=== PATIENT | female | born 1960 | race Caucasian/White ===

== ENCOUNTER 2020-05-13 11:33 | Emergency (ER) | payer OTHER, SELFPAY ==
--- NOTE | ~2020-05-13 | XR_ITS ---
XR chest 1V portable DATE: 05/13/2020 12:29 INDICATION: Cough, fever. History of asthma. TECHNIQUE: Portable AP chest on 05/13/2020 at 1213 hours COMPARISON: 08/02/2015 2 view chest FINDINGS: Heart size appears within normal limits. There is no hilar or mediastinal enlargement. Ther e is mild aortic unfolding. Mild focal infiltrate or atelectasis is suggested in the left mid lung; otherwise no pulmonary infilt rate or consolidation, pleural effusion or pulmonary vascular congestion or pneumothorax is detected. There is diffuse idiopathic skeletal hyperostosis of the thoracic spine. Diffuse osteopenia. IMPRESSION: Mild infiltrate or atelectasis is suggested in the left mid lung; otherwise no active car diopulmonary disease Reviewed, dictated and finalized at location A. NNED EQUIPMENT OPERATOR IMPRESSION: Mild infiltrate or atelectasis is suggested in the left mid lung; o therwise no active cardiopulmonary disease
[2020-05-13 12:00] VITALS: BP 137/93; PULSE 103; RESP 17; TEMP 37.1; O2SAT 96
--- NOTE | 2020-05-13 14:08 | ED.FEVER ---
HPI - Fever General Chief Complaint: Fever Stated Complaint: I think I have COVID, I am very claustophobic Time Seen by Provider: 05/13/20 12:27 Source: patient Mode of arrival: ambulatory Limitations: no limitations History of Present Illness HPI Narrative: 59 years old white female presents with fever up to 101, body aches, and sore throat started 5 days ago. Patient lives alone, use mask at work, went to visit her son 5 to 6 days ago who had similar symptoms. Patient was started on Zithromax by her family physician for possible strep, no improvement Patient denies any chest pain or shortness of breath. Patient feels anxious and distressed, been taking Xanax and would like to have a refill. Related Data Allergies Allergy/AdvReac Type Severity Reaction Status Date / Time No Known Allergies Allergy Verified 05/13/20 12:27 Review of Systems Review of Systems: Narrative: CONSTITUTIONAL: Fever, body aches EYES: Denies visual changes, redness, or discharge. ENT: Sore throat. CARDIOVASCULAR: Denies chest pain, palpitations, or edema. RESPIRATORY: Denies cough or dyspnea. GASTROINTESTINAL: Denies abdominal pain, nausea, vomiting, or diarrhea. GENITOURINARY: Denies dysuria or hematuria. SKIN: Denies rash or itching. MUSCULOSKELETAL: Denies back pain, joint pain, or myalgia. NEUROLOGIC: Weakness PSYCHIATRIC: Anxiety PMFSH Past Medical History Medical History (Updated 05/13/20 @ 14:47 by Abhi Moreno MD) Obesity Social History Social History Gender identity (if verbalized by the patient): Female Exam Narrative: Exam Narrative: General appearance: Well-developed, well-nourished, morbidly obese Skin: Normal color Head: Normocephalic, nontraumatic Eyes: Clear conjunctiva ENT: Oropharynx slightly erythematous Neck: Supple, nontender Chest and respiratory: Airway patent, no respiratory distress, no accessory muscle use Heart: Regular rate/rhythm Abdomen: Soft, nontender, no organomegaly, quiet bowel sounds Musculoskeletal: Normal range of motion, nontender back Neurologic: Alert and oriented ?3, patient is anxious Course Course Emergency Course: Stable Vital Signs Vital signs: Vital Signs Temperature 37.1 C 05/13/20 12:00 Pulse Rate 103 H 05/13/20 12:00 Respiratory Rate 17 05/13/20 12:00 Blood Pressure 137/93 H 05/13/20 12:00 Pulse Oximetry 96 05/13/20 12:00 Temperature 37.1 C 05/13/20 12:00 Pulse Rate 103 H 05/13/20 12:00 Respiratory Rate 17 05/13/20 12:00 Blood Pressure 137/93 H 05/13/20 12:00 Pulse Oximetry 96 05/13/20 12:00 MDM - Fever MDM Narrative Medical decision making narrative: Covid infection is my concern. Rapid strep, influenza swab, COVID-19 swab ordered Chest x-ray ordered. Lab Data Labs: Lab Results 05/13/20 Range/Units 12:17 SARS-CoV-2 RNA (RT-PCR) Pending Influenza A Screen Negative Reference Range: Negative Influenza B Screen Negative Reference Range: Negative Strep Screen Presumptive Negative *(Reference Range: Negative)* Critical Care Time Critical Care Time Critical Care Time: No Discharge Plan Discharge Clinical Impression: Viral infection Patient Disposition: Home, Self-Care Condition: Stable Instructions: Viral Syndrome (ED) Additional Instructions: Return if symptoms are worsening , call your family physician for appointment, take Tylenol as as needed for aches and pain, continue home medications. Remain isolated at home until you get the COVID-19 test r
[2020-05-13 14:47] VITALS: BP 137/80; PULSE 80; RESP 16; O2SAT 99
[2020-05-13] MEDS: ACETAMINOPHEN 325 MG TABLET 650 MG PO (14:48)
[2020-05-13] MEDS: IBUPROFEN 600 MG TABLET PO (14:49)
[2020-05-14 11:58] LABS: SARS-CoV-2 RNA PCR Positive
== END 2020-05-13 14:50 | disposition home or self-care (01) ==
PROVIDERS: Emergency Medicine; Emergency Provider Emergency Medicine; PCP Family Medicine
DX: U07.1 COVID-19 (principal); E66.9 Obesity, unspecified; Z68.41 Body mass index [BMI] 40.0-44.9, adult
CPT/HCPCS: 71045; 87081; 87635; 87804; 87880; 99283; A9270; C9803; U0003

== ENCOUNTER 2020-05-20 13:08 | Inpatient (IN) | payer OTHER, SELFPAY ==
[2020-05-20] VITALS (20 sets, daily range): BP systolic 102–138; BP diastolic 61–79; PULSE 59–104; RESP 14–43; TEMP 36.3–38.3; O2SAT 90–97; BMI 48.3
--- NOTE | ~2020-05-20 | CT_ITS ---
EXAMINATION: CTA chest PE protocol DATE: 05/20/2020 15:24 INDICATION: Shortness of breath. COVID positive. TECHNIQUE: Computed tomography (CT) pulmonary angiogram of the chest was performed with 100 mL Omnipa que-350 intravenous contrast. Additional 3D reconstructions utilizing coronal maximum intensity proje ction (MIP) were performed. Automated exposure control and iterative reconstruction technique were em ployed. The dose-length product was 936.41 mGy-cm. COMPARISON: None FINDINGS: Good contrast opacification of the pulmonary arteries. There is mild streak artifact from dense contr ast in the superior vena cava and right atrium. Mild scattered respiratory motion artifact and increa sed quantum mottle due to patient body habitus. Together this mildly decreases sensitivity in the sma ller subsegmental pulmonary arteries. No pulmonary embolism. There are extensive bilateral small patc hy groundglass opacities throughout both lungs suspicious for COVID pneumonia. No septal line thicken ing to suggest pulmonary edema. No pleural effusion or pneumothorax. Mild cardiomegaly. No pericardia l effusion. Thoracic aorta is normal in caliber with no dissection. Small sliding-type hiatal hernia and postoperative change of prior gastric bypass procedure. Mild likely reactive mediastinal lymphade nopathy. Moderate thoracic spondylosis. There are bridging osteophytes at multiple levels in the spin e, consistent with diffuse idiopathic skeletal hyperostosis (DISH). IMPRESSION: 1. No pulmonary embolism. Sensitivity mildly decreased in some of the smaller subsegmental pulmonary arteries due to combination of factors as detailed above. 2. Extensive patchy bilateral airspace disease most suspicious for COVID 19 pneumonia. Differential i ncludes less likely pulmonary edema, hypersensitivity pneumonitis or eosinophilic pneumonia. 3. Mild cardiomegaly. 4. Mild likely reactive mediastinal lymphadenopathy. 5. Small sliding-type hiatal hernia with change of prior gastric bypass. Reviewed, dictated and finalized at location A. ER GLAZIER IMPRESSION: 1. No pulmonary embolism. Sensitivity mildly decreased in some of the smaller s ubsegmental pulmonary arteries due to combination of factors as detailed above. 2. Extensive patchy bilateral airspace disease most suspicious for COVID 19 pne umonia. Differential includes less likely pulmonary edema, hypersensitivity pne umonitis or eosinophilic pneumonia. 3. Mild cardiomegaly. 4. Mild likely reactive mediastinal lymphadenopathy. 5. Small sliding-type hiatal hernia with change of prior gastric bypass.
--- NOTE | ~2020-05-20 | XR_ITS ---
XR chest 1V portable 05/20/2020 13:50 Indication: Shortness of breath Procedure: AP portable chest Comparison: 05/13/2020 Findings: Heart size normal. Bilateral perihilar interstitial infiltrates. No pleural effusion or pne umothorax. No acute osseous abnormality. Impression: 1: Bilateral perihilar interstitial infiltrates may represent edema or pneumonia. Reviewed, dictated and finalized at location A. TENANT GENERAL Impression: 1: Bilateral perihilar interstitial infiltrates may represent edema or pneumoni a.
--- NOTE | 2020-05-20 13:20 | ECG_ITS ---
Measurements Intervals [place] Rate: 106 P: 42 CA: 172 QRS: 1 QRSD: 90 T: -15 QT: 326 QTc: 434 Interpretive Statements SINUS TACHYCARDIA VOLTAGE CRITERIA FOR LVH NONSPECIFIC ST & T-WAVE ABNORMALITY- ANTEROLAT/INF LEADS BASELINE WANDER- I, II, III, AVR, AVL, AVF, V1-V4 ABNORMAL ECG Electronically Signed On 05-20-2020 14:36:32 RESEARCH QUALITY ASSURANCE ANALYST by Malcolm Law D.O.
[2020-05-20 13:33] LABS: Alveolar/Arterial O2 Gradient 45.1 mmHg; Base Excess ABG 3.9 mEq/l (+/-2.0); Device ROOM AIR; Fractional Inspired Oxygen 21 %; HCO3 ABG 28.2 mEq/l (22.0-26.0); Modified Allen's Test Pass; Oxygen Content ABG 15.6 %vol (16.0-22.0); Oxyhemoglobin 87.5 % THb (90.0-100.0); PCO2 ABG 41.4 mmHg (35.0-45.0); PO2 ABG 55.1 mmHg (80.0-100.0); PO2 FiO2 Ratio Arterial Blood 2.62 %; Site Drawn RIGHT RADIAL; Total Hemoglobin 12.7 g/dL (12.0-18.0); pH ABG 7.451 (7.350-7.450)
--- NOTE | 2020-05-20 13:44 | PC.NURSE ---
called lab, added on D anaxf [phone]
[2020-05-20] MEDS: FAMOTIDINE 20 MG/2 ML VIAL IV PUSH ×2 (13:57→20:52)
[2020-05-20] MEDS: SODIUM CHLORIDE 0.9% IV 500 ML 999 ML IV CONT (13:57)
[2020-05-20 14:02] LABS: Basophils Percent Auto 0.3 % (0.2-1.2); Eosinophils Percent Auto 0.3 % (0-4.4); Hematocrit 38.7 % (37.0-47.0); Hemoglobin 12.1 g/dL (12.0-15.0); Immature Granulocyte Absolute 0.03 K/mm3 (0.00-0.031); Immature Granulocyte Percent A 0.5 % (0-0.5); Lymphocytes Absolute Auto 0.97 K/mm3 (0.9-3.2); Mean Corpuscular HGB Conc 31.3 g/dl (32-36); Mean Corpuscular Hemoglobin 26.2 pg (26-34); Mean Corpuscular Volume 83.9 fl (80-100); Mean Platelet Volume 10.4 fl (7.4-10.4); Monocytes Absolute Auto 0.4 K/mm3 (0.1-0.6); Monocytes Percent Auto 7.3 % (2.6-8.5); Neutrophils Absolute Auto 4.6 K/mm3 (1.3-6.7); Neutrophils Percent Auto 75.6 % (45.5-73.1); Platelet Count Result 272 k/mm3 (150-375); Red Blood Count 4.61 M/mm3 (4.2-5.4); White Blood Count 6.1 K/mm3 (4.5-10.0)
[2020-05-20 14:14] LABS: INR 1.1; Prothrombin Time 14.3 Seconds (11.1-14.7)
[2020-05-20 14:15] LABS: Partial Thromboplastin Time 28.8 SECONDS (22.3-36.8)
[2020-05-20 14:16] LABS: Alanine Aminotransferase 19 U/L (4-35); Albumin Level 3.6 g/dL (3.5-5.1); Alkaline Phosphatase 66 U/L (38-126); Anion Gap 7 mmol/L (8-16); Aspartate Amino Transferase 32 U/L (14-36); Bilirubin,Total 0.4 mg/dL (0.2-1.3); Blood Urea Nitrogen 11 mg/dL (7-17); Calcium 8.9 mg/dL (8.4-10.2); Carbon Dioxide 31 mmol/L (22-30); Chloride 99 mmol/L (98-107); Estimated CRCL calculation 131 ml/min; Estimated Glomerular Filt Rate > 60; Glucose 134 mg/dL (65-105); Magnesium 2.2 mg/dL (1.6-2.3); Potassium 3.7 mmol/L (3.4-5.0); Sodium 137 mmol/L (137-145)
[2020-05-20 14:17] LABS: D Dimer 1.29 ug/mL (<0.48)
[2020-05-20 14:26] LABS: NT Pro B Type Natriuretic Pept 55 PG/ML (5-100)
--- NOTE | 2020-05-20 14:40 | ED.GENADULT ---
HPI - General Adult General Chief complaint: Shortness of Breath/Dyspnea <Sanjay Plasencia PA-C - Last Filed: 05/20/20 16:35> Stated complaint: covid <Sanjay Plasencia PA-C - Last Filed: 05/20/20 16:35> Time Seen by Provider: 05/20/20 13:20 <Sanjay Plasencia PA-C - Last Filed: 05/20/20 16:35> Source: patient and old records reviewed <Sanjay Plasencia PA-C - Last Filed: 05/20/20 16:35> Mode of arrival: ambulatory <Sanjay Plasencia PA-C - Last Filed: 05/20/20 16:35> Limitations: no limitations <Sanjay Plasencia PA-C - Last Filed: 05/20/20 16:35> History of Present Illness HPI narrative: Patient is a 59-year-old female who presents with shortness of breath and fatigue patient has had symptoms of Covid for 12 days has been taking Tylenol and ibuprofen with a few vitamins for her symptoms patient denies vomiting or diarrhea patient notes that she has shortness of breath worse with activity does okay with no activity patient notes some heaviness of the chest that is minimal in nature patient on arrival does not appear distressed or uncomfortable <Sanjay Plasencia PA-C - Last Filed: 05/20/20 16:35> Related Data Home medications: Home Medications Medication Instructions Recorded Confirmed desvenlafaxine succinate 100 mg PO DAILY 05/21/20 05/21/20 losartan 50 mg PO DAILY 05/21/20 05/21/20 <Sanjay Plasencia PA-C - Last Filed: 05/20/20 16:35> Allergies/adverse reactions: Allergies Allergy/AdvReac Type Severity Reaction Status Date / Time No Known Allergies Allergy Verified 05/20/20 18:10 <Sanjay Plasencia PA-C - Last Filed: 05/20/20 16:35> Review of Systems Review of Systems: All systems reviewed & are unremarkable except as noted in HPI and below <Sanjay Plasencia PA-C - Last Filed: 05/20/20 16:35> PMFSH Past Medical History Medical History: Medical History (Updated 05/20/20 @ 16:35 by Sanjay Plasencia PA-C) Anxiety Obesity <Sanjay Plasencia PA-C - Last Filed: 05/20/20 16:35> Family History Family History: Family History Grandparent Dementia Father Alcohol abuse Mother Parkinson's disease, Lewy body <Sanjay Plasencia PA-C - Last Filed: 05/20/20 16:35> Social History Social History: Social History (Updated 05/20/20 @ 14:43 by Sanjay Plasencia PA-C) Smoking status: Never smoker Alcohol intake: never Substance use: never Gender identity (if verbalized by the patient): Female Spiritual care concerns: No <Sanjay Plasencia PA-C - Last Filed: 05/20/20 16:35> Exam Narrative: Exam Narrative: GENERAL: Well-appearing, obese, and in no acute distress. HEAD: Normocephalic, atraumatic. EYES: PERRLA and EOMI. ENT: Nares clear, no rhinorrhea or epistaxis. Mucous membranes moist. NECK: Supple. No adenopathy or masses. CHEST: Clear to auscultation. No respiratory distress. No wheezes. Crackles in the lung bases HEART: Regular rate and rhythm. No murmur heard. EXTREMITIES: Normal range of motion. No edema. SKIN: Warm, dry, no rash. NEURO: No focal deficits. Alert and oriented x3. Cranial nerves II through XII grossly intact PSYCH: Normal mood and affect. <Sanjay Plasencia PA-C - Last Filed: 05/20/20 16:35> Course Course Emergency Course: Patient evaluated in the emergency department found to have extensive pneumonia will be brought into the hospital will require oxygen due to hypoxemia there was no pulmonary embolus seen on the CT patient agrees to stay in hospital <Sanjay Plasencia PA-C - Last Filed: 05/20/20 16:35> STEWARD/STEWARDESS LOUNGE/PA Physician Supervision For this patient encounter, I reviewed the STEWARD/STEWARDESS LOUNGE or PA documentation, treatment plan, and medical decision making; and I had [id number] time with this patient. <Kaia Reyes MD - Last Filed: 05/25/20 08:57> Consultations Consultation #1: Discussed case with hospitalist who has agreed
[2020-05-20] MEDS: LORazepam INJ (*CRX) 2 MG/ML VIAL 1 MG IV PUSH ×2 (14:58→16:41)
[2020-05-20] MEDS: DEXAMETHASONE SOD PHOS INJ 4 MG/ML VIAL 6 MG IV PUSH (16:47)
--- NOTE | 2020-05-20 17:45 | PC.NURSE ---
This patient, Funmi Sutherland, was admitted to 3 [facility] Surg Room 301-01. Patient/family oriented to hospital policies and general routines including ID bracelet, bed and alarms, visiting hours, pain management, procedures, bathroom and other care routines, personal items, smoking policy, room service/diet, and visiting hours.Report received from Funmi BERMUDEZ. Information on how to activate the Rapid Response Team has been discussed. Patient/Family are encouraged to report perceived risks to care and to ask questions if they do not understand what they are told or what they should do.
--- NOTE | 2020-05-20 20:52 | PC.NURSE ---
Son is to bring home med list to the hospital. Patient is unsure when he will be here.
[2020-05-21] VITALS (8 sets, daily range): BP systolic 111–147; BP diastolic 63–84; PULSE 55–99; RESP 18–20; TEMP 36.2–36.8; O2SAT 91–95
[2020-05-21] MEDS: FAMOTIDINE 20 MG/2 ML VIAL IV PUSH (08:05)
--- NOTE | 2020-05-21 09:49 | PHAR ---
The patient's home med of Desvenlafaxine ER 100mg has been verified.
[2020-05-21] MEDS: LOSARTAN POTASSIUM 50 MG TABLET PO (10:07)
[2020-05-21] MEDS: DEXAMETHASONE 2 MG TABLET 6 MG PO (10:07)
[2020-05-21] MEDS: CHOLECALCIFEROL 1,000 UNITS TABLET 1000 UNITS PO (10:07)
[2020-05-21] MEDS: ASCORBIC ACID 500 MG TABLET PO (10:07)
[2020-05-21] MEDS: ZINC SULFATE 220 MG CAPSULE PO (10:08)
[2020-05-21] MEDS: ENOXAPARIN 40 MG/0.4 ML SYRINGE SUB-Q (10:08)
--- NOTE | 2020-05-21 12:13 | PM.SD ---
Same Day Admit/Disch: HPI History of Present Illness Chief complaint: Shortness of breath, fevers; known COVID + Narrative: Date of Service 05/21/20 1130 The supervising physician for this short stay summary is Dr Nikhil Sanchez. Ms. Sutherland is a pleasant 59yo F with history of hypertension, sleep apnea, anxiety who presented to the ED for evaluation of shortness of breath and fevers. She is known to be COVID positive 05/13/20, symptoms started 05/08/20 with sore throat and body aches. She was having high fevers at home up to 103F despite taking tylenol. She was maintaining adequate oxygen saturations on room air and was placed on 1.5L/min supplemental oxygen for comfort. CTA chest demonstrated extensive bilateral patchy ground glass opacities without evidence of pulmonary embolism. She was started on dexamethasone by ED provider. The following morning, she was again tolerating adequate oxygen saturations without supplemental oxygen and without signs of acute respiratory distress. The onset of her symptoms was outside of the recommended time window thus she was not started on antiviral therapy. She was encouraged to follow up with her PCP and educated on return to ER instructions. She was educated on purchasing a pulse oximeter if she wished, for closer monitoring at home. She verbalized understanding and agreed with plan for discharge. She was hemodynamically stable for discharge 05/21/20 with plans to follow up with PCP. [facility] Past Medical History Medical History Anxiety Hypertension Obesity Sleep apnea Surgical History Surgical History H/O gastric bypass around 2004 History of hysteroscopy polypectomy 04/2018 S/P lumpectomy, right breast Benign Family History Family History Grandparent Dementia Father Alcohol abuse Mother Parkinson's disease, Lewy body Social History Social History (Updated 05/27/20 @ 11:51 by Crystal Luong PA-C) Social History: Ms. Sutherland lives at home in [place] and works for the [employer] [employer]. She denies alcohol, tobacco, or other substance use. She designates her children, Liyah and Landon Sutherland, to be her surrogate decision makers. PCP: Dr Alex Laguerre Code: Full Code Status Smoking status: Never smoker Alcohol intake: never Substance use: never Gender identity (if verbalized by the patient): Female Spiritual care concerns: No Same Day Admit/Disch: Med Pre-admit Medications Home Medications Medication Instructions Recorded Confirmed Type albuterol sulfate [Proventil HFA] 2 puff INHALATION Q6HRT PRN #8.5 g 05/21/20 Rx desvenlafaxine succinate 100 mg PO DAILY 05/21/20 05/21/20 History dexamethasone 6 mg PO DAILY@0800 7 Days #21 05/21/20 Rx tablet losartan 50 mg PO DAILY 05/21/20 05/21/20 History Exam Narrative: Exam Narrative: General: Female resting comfortably sitting up in bed in no acute respiratory distress. HEENT: Normocephalic, atraumatic, EOMI, oropharynx clear. Neck: Supple. Chest: Decreased breath sounds LOUIE, faint wheeze throughout. Respirations are even and nonlabored, tolerating room air, able to speak full sentences. Heart: Rate and rhythm regular with S1 and S2. Abdomen: Soft, nontender, nondistended, bowel sounds present. Skin: Warm, dry. No rashes or lesions noted on limited exam. Extremities: Peripheral pulses palpable. No edema, cyanosis, or clubbing. No pain to palpation. Neurologic: No focal neurologic deficits are noted. Speech is clear. Psychiatric: Mood and affect are normal. She is pleasant and cooperative. DS: Data Data Completed and Pending Labs on day of discharge: Last Vital Signs Temp 98.3 F 05/21/20 12:00 Pulse 64 05/21/20 12:00 Resp 18 05/21/20 12:00 BP 139/83 05/21/20 12:00 Pulse Ox 92 05/21/20 12
--- NOTE | 2020-05-21 14:09 | HOMEO2EVAL ---
Home Oxygen Evaluation RC: Home Oxygen (O2) Evaluation Start: 05/21/20 08:02 Freq: ONCE Status: Active Protocol: RPE Activity Type Activity Date Activity User E-Sign Co-Sign Detail Recorded Client Recorded Date Recorded By Document 05/21/20 10:45 DJO [id number] 05/21/20 14:08 DJO Document 05/21/20 10:50 DJO [id number] 05/21/20 14:08 DJO Document 05/21/20 11:00 DJO [id number] 05/21/20 14:08 DJO 05/21/20 05/21/20 05/21/20 10:45 10:50 11:00 Home O2 Evaluation Test Phase Resting Exercise Resting Oxygen Delivery Room Air Room Air Room Air Pulse Oximetry (90-100 %) 94 91 94 Pulse Rate (60-100 beats/min) 84 99 85 Activity Tolerance Good Treatment Charges O2 Evaluation
--- NOTE | 2020-05-21 14:09 | PCRCNOTE ---
HOME O2 EVAL DONE, NO REQUIREMENTS
== END 2020-05-21 13:45 | disposition home or self-care (01) | DRG 177 ==
LOC: ANHED 16:35 → ANH3MEDSUR 17:27
PROVIDERS: Emergency Medicine Emergency Medical Services; Admitting Provider Family Medicine; Emergency Provider Emergency Medicine; PCP Family Medicine; Visit Provider Internal Medicine
DX: U07.1 COVID-19 (principal); J12.89 Other viral pneumonia; Z68.42 Body mass index [BMI] 45.0-49.9, adult; R09.02 Hypoxemia; E66.9 Obesity, unspecified
CPT/HCPCS: 36415; 36600; 71045; 71275; 80053; 82805; 83735; 83880; 85025; 85380; 85610; 85730; 93005; 94618; 96365; 96372; 96374; 96375; 96376; 99285; A9270; G0378; J0131; J1100; J1650; J2060; J7040; J8540; Q9967

== ENCOUNTER 2020-06-04 13:53 | Outpatient (CLI) | payer OTHER, SELFPAY ==
--- NOTE | ~2020-06-04 | US_ITS ---
EXAMINATION: US venous doppler LE RT DATE: 06/04/2020 14:38 INDICATION: Right lower limb pain and swelling TECHNIQUE: Martinez scale images without and with compression and Doppler images of the right lower extre mity veins were obtained. COMPARISON: None FINDINGS: There is thrombosis in the right posterior tibial and peroneal veins The right common femor al vein, profunda femoral vein, femoral vein, popliteal vein, and greater saphenous vein are patent. IMPRESSION: 1. Thrombosis in the right posterior tibial and peroneal veins. Reviewed, dictated and finalized at location A. SEWER
== END 2020-06-04 13:54 | disposition home or self-care (01) ==
PROVIDERS: PCP Family Medicine; Visit Provider Physician Assistant
DX: I82.441 Acute embolism and thrombosis of right tibial vein (principal); I82.451 Acute embolism and thrombosis of right peroneal vein
CPT/HCPCS: 93971

== ENCOUNTER 2020-06-12 17:08 | Outpatient (CLI) | payer OTHER, SELFPAY ==
--- NOTE | ~2020-06-12 | XR_ITS ---
XR chest 2V DATE: 06/12/2020 17:29 INDICATION: Viral pneumonia. History of Covid. Mitral valve prolapse. TECHNIQUE: PA and lateral views COMPARISON: 05/20/[address] chest [address] pulmonary scan FINDINGS: There is interval resolution of bilateral pulmonary infiltrates since 05/20/2020. No pleural effusion or pulmonary vascular congestion or pneumothorax. Heart size appears within eusebia l limits. No hilar or mediastinal enlargement. Diffuse idiopathic skeletal hyperostosis of the thoracic spine. IMPRESSION: Resolution of bilateral pulmonary infiltrates since 05/20/2020 Reviewed, dictated and finalized at location A. RWEAR HEMMER
== END 2020-06-12 17:09 | disposition home or self-care (01) ==
LOC: ANHIMG 17:09
PROVIDERS: PCP Family Medicine; Visit Provider Physician Assistant
DX: J12.9 Viral pneumonia, unspecified (principal)
CPT/HCPCS: 71046

== ENCOUNTER 2021-04-08 17:40 | Outpatient (CLI) | payer OTHER, SELFPAY ==
--- NOTE | ~2021-04-08 | XR_ITS ---
XR knee RT 2V 04/08/2021 18:01 Indication: Right knee pain Procedure: 2 views right knee Comparison: No prior studies for comparison. Findings: There is mild-moderate osteoarthritis of the right knee. No fracture or traumatic malalignm ent. No significant joint effusion. Impression: 1: Mild-moderate tricompartment osteoarthritis of the right knee. Reviewed, dictated and finalized at location A. Impression: 1: Mild-moderate tricompartment osteoarthritis of the right knee.
== END 2021-04-08 17:41 | disposition home or self-care (01) ==
LOC: ANHIMG 17:44
PROVIDERS: PCP Family Medicine; Visit Provider Physician Assistant
DX: M25.561 Pain in right knee (principal); M17.11 Unilateral primary osteoarthritis, right knee
CPT/HCPCS: 73560

== ENCOUNTER 2023-04-10 13:26 | Outpatient (CLI) | payer OTHER, SELFPAY ==
--- NOTE | ~2023-04-10 | MM_ITS ---
EXAMINATION: MM screening wendy BI w yvette HISTORY: Screening mammogram TECHNIQUE: Craniocaudal and mediolateral oblique 3-D tomosynthesis images were obtained and synthetic 2-D images were generated. CAD analysis was submitted and interpreted. COMPARISON: 12/24/2018 bilateral screening mammogram BREAST PARENCHYMAL COMPOSITION: There are scattered areas of fibroglandular density. FINDINGS: There is no evidence of suspicious mass, calcification, or architectural distortion to sugg est malignancy in either breast. There has been no suspicious interval change. IMPRESSION: 1. No mammographic evidence of malignancy. 2. Recommend routine screening mammography in one year. BI-RADS Category 1: Negative Reviewed, dictated and finalized at location A.
== END 2023-04-10 13:27 | disposition home or self-care (01) ==
LOC: CHSIMG 13:28
PROVIDERS: PCP Physician Assistant; Visit Provider Physician Assistant
DX: Z12.31 Encounter for screening mammogram for malignant neoplasm of breast (principal)
CPT/HCPCS: 77063; 77067

== ENCOUNTER 2024-09-05 16:50 | Outpatient (CLI) | payer OTHER, SELFPAY ==
--- NOTE | ~2024-09-05 | XR_ITS ---
EXAM: XR lumbar spine 2-3V DATE: 09/05/2024 17:12 HISTORY: M54.16 - Radiculopathy, lumbar region . COMPARISON: None available. FINDINGS: Mild lumbar scoliosis. No lytic or blastic lesion. No fracture or dislocation. Mild bilate ral hip osteoarthritic arthritis. Anastomotic sutures over the upper abdomen. Partially visualized me tallic density in the lateral view over the femurs, may represent a fixation device mostly excluded f rom the [id number]. 3 mm anterolisthesis at L4-5. 4 mm retrolisthesis at L5-S1. Decreased minerali zation. Multilevel concave superior and inferior endplate deformities. Severe mid and lower lumbar fa cet hypertrophy and sclerosis. IMPRESSION: Osteopenia. Mild lumbar scoliosis. Grade 1 listheses at L4-5 and L5-S1. Multilevel concav e endplate deformities as can be seen with osteoporosis. Severe lower lumbar facet arthropathy. Reviewed, dictated and finalized at location K. IMPRESSION: Osteopenia. Mild lumbar scoliosis. Grade 1 listheses at L4-5 and L5 -S1. Multilevel concave endplate deformities as can be seen with osteoporosis. Severe lower lumbar facet arthropathy.
--- OUTSIDE RECORDS SUMMARY | 2024-09-05 18:47 | XMS_ITS | Clinical Summary ---
Author Organization [facility] Address [address] [facility] [place] [address] Care Team Providers Care Principal Database Developer Name Role Phone Alex Laguerre MD Primary Care Provider [phone] Allergies No known active allergies Medications desvenlafaxine ER (PRISTIQ) 100 mg 24 hr tablet Take 1 tablet (100 mg total) by mouth daily Active ferrous sulfate 325 mg (65 mg of elemental iron) tablet TK 1 T PO QD 5 9 Active losartan (COZAAR) 50 mg tablet 9 Active traZODone (DESYREL) 50 mg tablet 9 Active ALPRAZolam (XANAX) 0.25 mg tablet Take 0.25 mg by mouth as needed for anxiety Active cyanocobalamin (Vitamin B-12) 1,000 mcg sublingual tablet Take 1 tablet (1,000 mcg total) by mouth daily Active methylPREDNISol one (MEDROL) 4 mg tablet Take 1 tablet (4 mg total) by mouth daily Taper per package directions 21 tablet 9 Active Additional Information Patient not taking.Reported on 07/21/2024 zinc gluconate 30 mg tablet Take by mouth Act brie magnesium glycinate 100 mg tablet Take by mouth Active ascorbic acid (vitamin C) 1,000 mg tablet Take 1 tablet (1,000 mg total) by mouth daily Active cholecalciferol 25 mcg (1,000 unit) tablet Take 1 tablet (1,000 Units total) by mouth daily Active selenium 200 mcg tablet Take by mouth Activ e Active Problems Problem Noted Date Diagnosed Date Tongue mass 07/21/2024 Spondylolisthesis of lumbar region 11/30/2018 Assessment & Plan (12/08/2018 3:36 PM CDT): Assessment Spondylolisthesis with spinal stenosis L4-5 Plan Observation. She had some success with the oral steroid taper and she is going to sit on her situation exercise for now. If he gets worse she is to call and we will schedule a left L4-5 transforaminal epidural steroid injection Assessment & Plan (11/30/2018 9:28 AM CDT): Assessment Spondylolisthesis L4-5 known spinal stenosis L4-5 and L5-S1 from 2014 Plan Medrol Dosepak. Updated CT scan lumbar spine and return visit to map out treatment plan. I did discuss the fact that her BMI is 50 and it would be 102 lb to get to a level where I felt surgery was manageable Encounters Date Type Department Care Team Description 07/21/2024 3:30 PM SPOTTER Office Visit [facility] Otolaryngology [address] [place] [id number] Maverick Grace II, MD Tongue mass (Primary Dx) from Last 3 Months Surgical History Surgery Date Site/Laterality Comments BARIATRIC SURGERY 06/15/2006 - 06/14/2007 Medical History Medical History Date Comments Hypertension Depression Sleep apnea Tongue lesion Heart disease MVP Headache Family History Medical History Relation Name Comments Cancer Maternal Grandmother Cancer Mother Hypertension Mother Relation Name Status Comments Maternal Grandmother Mother Social History Tobacco Use Types Packs/Day Years Used Date Smoking Tobacco: Never Smokeless Tobacco: Never Alcohol Use Standard Drinks/Week Comments Yes 0 (1 standard drink = 0.6 oz pur e alcohol) PHQ-2 Answer Date Recorded PHQ-2 Score 2 02/04/2019 Comments Unknown Sex and Gender Information Value Date Recorded Sex Assigned at Not on file Legal Sex Female 12:32 PM SPOTTER Gender Identity Not on file Sexual Orientation Not on file 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 Not on file Not on file Obstetrics History Last Filed Vital Signs Vital Sign Reading Time Taken Comments Blood Pressure 142/88 11/30/2018 9:05 AM CDT Pulse - - Temperature - - Respiratory Rate 18 07/21/2024 3:25 PM SPOTTER Oxygen Saturation - - Inhaled Oxygen Concentration - - Weight 113.4 kg (250 lb) 07/21/2024 3:25 PM SPOTTER Height 175.3 cm (5' 9 ) 07/21/2024 3:25 PM SPOTTER Body Mass Index 36.92 07/21/2024 3:25 PM SPOTTER Plan of Treatment Health Maintenance Due Date Last Done Comments Breast Cancer Screening-Mammogram 1959 Cervical Cancer Screening 1959 Colon Cancer Screening-Colonoscopy 1959 Fall Risk Assessment 1959 Hepatitis C Screening 1959 Osteoporosis Screening-Bone Density Scan 1959 Hepatitis B Screening 1977 Pneumococcal vaccine 65+ (1 of 1 - PCV) 2009 Zoster Vaccine (1 of 2) 2009 Depression Screening 12/01/2019 11/30/2018, 12/01/19 Influenza Vaccine (#1) 2024 , 04/02/2020, 03/22/2019, Additional history exists DTaP/Tdap/Td Vaccine (2 - Td or Tdap) 04/25/2024 04/25/2014 Well Visit 65+ 2024 Insurance [facility] CHO[facility] PLUS [facility] CHO[facility] PL[facility] Care Teams Principal Database Developer Relationship Specialty Start Date End Date Alex Laguerre MD [address] [place] [phone] PCP - General Family Medicine 07/08/24
--- OUTSIDE RECORDS SUMMARY | 2024-09-05 18:47 | XMS_ITS | Referral Summary ---
Author Organization [facility] Address [address] [facility] [place] [address] Care Team Providers Care Processing Clerk Name Role Phone Alex Laguerre MD Primary Care Provider Encounters Date Type Department Care Team Description 07/21/2024 3:30 PM GEOSCIENCE SPECIALIST Office Visit [facility] Otolaryngology [address] [place] [phone] Maverick Grace II, MD Tongue mass (Primary Dx) from Last 3 Months Allergies No known active allergies Medications desvenlafaxine [...] level where I felt surgery was manageable Social History Tobacco Use Types Packs/Day Years Used Date Smoking Tobacco: Never Smokeless Tobacco: Never Alcohol Use Standard Drinks/Week Comments Yes 0 (1 standard drink = 0.6 oz pur e alcohol) PHQ-2 Answer Date Recorded PHQ-2 Score 2 02/04/2019 Comments Unknown Sex and Gender Information Value Date Recorded Sex Assigned at Not on file Legal Sex Female 12:32 PM GEOSCIENCE SPECIALIST Gender Identity Not on file Sexual Orientation Not on file 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 Not on file Not on file Last Filed Vital Signs Vital Sign Reading Time Taken Comments Blood Pressure 142/88 11/30/2018 9:05 AM CDT Pulse - - Temperature - - Respiratory Rate 18 07/21/2024 3:25 PM GEOSCIENCE SPECIALIST Oxygen Saturation - - Inhaled Oxygen Concentration - - Weight 113.4 kg (250 lb) 07/21/2024 3:25 PM GEOSCIENCE SPECIALIST Height 175.3 cm (5' 9 ) 07/21/2024 3:25 PM GEOSCIENCE SPECIALIST Body Mass Index 36.92 07/21/2024 3:25 PM GEOSCIENCE SPECIALIST Plan of Treatment Not on file Insurance [facility] Address: [address] [place] [address] [facility] [employer] Address: [address] [place] [address] Care Teams Processing Clerk Relationship Specialty Start Date End Date Alex Laguerre MD [address] [place] [phone] PCP - General Family Medicine 07/08/24
--- OUTSIDE RECORDS SUMMARY | 2024-09-05 18:47 | XMS_ITS | Clinical Summary ---
Author Organization [facility] Address [address] [address] Phone Care Team Providers Care Offset Press Operator Name Role Phone Beronica Guajardo Primary Care Provider [phone] Medications polyethylene glycol (MIRALAX) Powder Use entire bottle of 255 grams of miralax for Colon prep as directed by office. 255 g 09/01/2017 Active Social History Tobacco Use Types Packs/Day Years Used Date Smoking Tobacco: Never Assessed Comments Unknown Sex and Gender Information Value Date Recorded Sex Assigned at Not on file Legal Sex Female 8:30 PM CDT Gender Identity Not on file Sexual Orientation Not on file Plan of Treatment Health Maintenance Due Date Last Done Comments Hepatitis C Virus (HCV) Screening 1959 TdaP Immunization 1959 Pap Smear 1980 Cervical Cancer Screening (CCS) 1989 HPV/Cotest 1989 Cologuard 2009 Immunochemical Fecal Occult Blood 2009 Mammogram 2009 Pneumococcal Immunization (5 0+ years) (1 of 1 - PCV) 2009 Zoster Immunization (1 of 2) 2009 Colonoscopy 11/19/2022 11/19/2017 Colorectal Cancer Screening 11/19/2022 Influenza Immunization (#1) 2024 SARS-COV-2 Immunization (1 - 2023- season) 2024 Respiratory Syncytial Virus (RSV) Immunization (Adult) (1 - 1-dose 75+ series) 2034 11/19/2017 Hepatitis B Immunization Aged Out No longer eligible based on patient's age to complete this topic Meningococcal Immunization (ACWY) Aged Out No longer eligible based on patient's age to complete this topic Pneumococcal Immunization Combined Aged Out No longer eligible based on patient's age to complete this topic Rotavirus Immunization Aged Out No lo nger eligible based on patient's age to complete this topic Procedures Procedure Name Priority Date/Time Associated Diagnosis Comments COLONOSCOPY Routine 11/19/2017 from Last 3 Months or Most Recently Relevant to Health Maintenance Results * COLONOSCOPY (11/19/2017) Kashif Buenrostro DO PROCEDURE/MINOR SURGICAL ORDERA BLES Final Result from Last 3 Months or Most Recently Relevant to Health Maintenance Care Teams Offset Press Operator Relationship Specialty Start Date End Date Beronica Guajardo PA [address] [place] [id number] PCP - General Physician Door To Door Salesman 08/25/17
--- OUTSIDE RECORDS SUMMARY | 2024-09-05 18:47 | XMS_ITS | Clinical Summary ---
Author Organization [facility] Address [address] [place] [id number] Care Team Providers Care Philosophy Instructor Name Role Phone Unavailable Primary Care Provider Unavailabl e Social History Tobacco Use Types Packs/Day Years Used Date Smoking Tobacco: Never Assessed Comments Unknown Sex and Gender Information Value Date Recorded Sex Assigned at Not on file Legal Sex Female 5:11 PM CDT Gender Identity Not on file Sexual Orientation Not on file Plan of Treatment Health Maintenance Due Date Last Done Comments Cervical Cancer Screening Pa p Smear (Age 30 to 64) Every 3 Years 1959 Colorectal Cancer Screening Colonoscopy (10 Years) 1959 Annual Physical 1962 Hepatitis C 1977 DTaP, Tdap and Td Vaccines ( 1 - Tdap) 1978 Cervical Cancer Screening Pa p with HPV Testing (Age 30 to 64) Every 5 Years 1989 Cervical Cancer Screening with HPV 1989 Mammogram Screening 1999 Zoster Vaccines (1 of 2) 2009 COVID-19 Vaccine (2023-2 5 season) 2024 Influenza Adult (#1) 2024 Dexa Scan (General) 2024 Pneumococcal Vaccine: 65+ Ye ars (1 of 1 - PCV) 2024 RSV Immunization or 60+ Years (1 - 1-dose 75+ series) 2034 Meningococcal B Vaccine Aged Out No l onger eligible based on patient's age to complete this topic Meningococcal Vaccine Aged Out No modesta pierre eligible based on patient's age to complete this topic Pneumococcal Vaccine: Pediat rics (0 to 5 Years) and At-Risk Patients (6 to 64 Years) Aged Out No longer eligible b ased on patient's age to complete this topic RSV Immunizations Under 20 Months Aged Out No longer eligible based on patient's age to complete this topic
== END 2024-09-05 16:51 | disposition home or self-care (01) ==
PROVIDERS: PCP Family Medicine
DX: M41.86 Other forms of scoliosis, lumbar region (principal); M43.16 Spondylolisthesis, lumbar region; M43.17 Spondylolisthesis, lumbosacral region; M43.8X9 Other specified deforming dorsopathies, site unspecified; M51.369 Other intervertebral disc degeneration, lumbar region without mention of lumbar back pain or lower extremity pain; M81.0 Age-related osteoporosis without current pathological fracture; M47.816 Spondylosis without myelopathy or radiculopathy, lumbar region
CPT/HCPCS: 72100

== ENCOUNTER 2024-09-19 15:50 | Outpatient (CLI) | payer OTHER, SELFPAY ==
--- NOTE | ~2024-09-19 | XR_ITS ---
AP view of the pelvis and AP and lateral views of the right hip Clinical history: Pain Findings: No acute fracture or dislocation is seen. Osseous alignment is anatomic. Bilateral hip and SI joint spaces are preserved. Soft tissues are unremarkable. Impression: No significant abnormality is seen. Reviewed, dictated and finalized at [facility]. Impression: No significant abnormality is seen.
== END 2024-09-19 15:51 | disposition home or self-care (01) ==
LOC: MICIMG 15:51
PROVIDERS: PCP Chiropractor; Visit Provider Chiropractor
DX: M25.551 Pain in right hip (principal)
CPT/HCPCS: 73502

== ENCOUNTER 2024-10-03 08:25 | Outpatient (RCR) | payer OTHER, SELFPAY ==
[2024-10-03 08:32] VITALS: BMI 39.2
== END 2024-12-27 07:51 | disposition home or self-care (01) ==
LOC: ANHDMC 08:25
PROVIDERS: PCP Family Medicine
DX: E66.9 Obesity, unspecified (principal); Z71.3 Dietary counseling and surveillance; Z68.39 Body mass index [BMI] 39.0-39.9, adult
CPT/HCPCS: 97802

== ENCOUNTER 2024-10-20 16:30 | Outpatient (RCR) | payer OTHER, SELFPAY ==
--- NOTE | 2024-09-14 16:29 | OPREHPOC ---
Outpatient Therapy Plan of Care This is a Multidisciplinary Plan of Care that may contain components documented by all disciplines (PT, OT, and ST.) PT Problem 1 PT Problem #1 Knowledge Deficit PT Goal 1 Goal / Goal Update 1. Patient will perform independent HEP Target Visit 3 PT Problem 2 PT Problem #2 Pain PT Goal 1 Goal / Goal Update 1. Low back/hip pain no higher than 3/10 Target Visit 10 PT Problem 3 PT Problem #3 Impaired Strength PT Goal 1 Goal / Goal Update 1. Hip abduction 5/5 marilee and without pain Target Visit 10 PT Problem 4 PT Problem #4 Impaired Gait PT Goal 1 Goal / Goal Update 1. Pt will ambulate at least 400 feet on 2 minute walk test without increased pain Target Visit 10 PT Problem 5 PT Problem #5 Impaired Functional ADLs PT Goal 1 Goal / Goal Update 1. Patient will report no limitation with typical activities including yard work Target Visit 10
--- NOTE | 2024-09-14 16:29 | PTOPEVAL1 ---
Assessment and note entered by Cynthia Cano DPT Evaluation Information Assessment Status Evaluation ICD-10 Condition Codes (PT) Pain in low back M54.50,Radiculopathy, lumbar region M54.16,Difficulty Walking R26.2,Weakness R53.1,Urge incontinence N39.41 Subjective Information Pt reports a several week history of posterior R hip/back pain. Highest pain 10/10 and lowest 8/10. Denies n/t. Pain radiates down laterally to knee. Pain increases with sit to stand, getting into her car, standing in one place. Some pain with walking. Gabapentin seems to help some. Difficulty performing yard work at home or anything that requires bending over like putting on shoes and socks. Has not been as active in general over the past few weeks. Pt also has order for pelvic organ prolapse. Voids less than 10 times a day, sometimes as low as 2. Sometimes wakes at night 1 time. Can hold urge to void at least 30 minutes. Does get urge incontinence 2 times a week. No history of pelvic pain. Patient goal: reduce pain Will be getting CT scan but not scheduled until 6 visits of therapy. Reported Pain Level Pain Score 1: Self Report Assessment PT Clinical Summary The patient is presenting to skilled therapy with a several week history of radiating R LBP. She presents with decreased LE strength, signs of neural tension, and impaired gait pattern which are contributing to her pain and difficulty with typical activities. She will highly benefit from skilled therapy to address these impairments in order to reduce pain and restore function. She also reports some urge incontinence but would like to focus on her back at this time- patient educated today on urge suppression techniques. Plan of Care Interventions Electrical Stimulation,Gait Training,Hot Pack/Cold Pack,Manual Therapy,Neuro Re-education,Patient/ Caregiver Education,Therapeutic Activities, Therapeutic Exercise PT Services Indicated Yes Treatment Frequency and 2 times a week for 10 visits Duration These treatments will address the objective and functional deficits as defined above. The patient will be advanced safely and appropriately in order for the patient to progress towards his/her prior level of function. Additional exercises will be introduced and as well as a comprehensive home exercise program upon discharge, if needed, ?to ensure carryover of functional gains achieved in the clinic. This treatment plan has been reviewed and agreement upon by the patient.
--- NOTE | 2024-10-20 17:50 | PTOPDC ---
Assessment and note entered by Sharath Campbell, PT Evaluation Information Assessment Status Discharge ICD-10 Condition Codes (PT) Pain in low back M54.50,Radiculopathy, lumbar region M54.16,Difficulty Walking R26.2,Weakness R53.1,Urge incontinence N39.41 Subjective Information Patient is requesting discharge at this time. Reports that she feels she is doing better overall and wants to discharge to [facility]. Unsure whether or not she wants to pursue MRI, but wants continued pain resolution. Reported Pain Level Pain Score 5: Self Report Assessment PT Clinical Summary Patient has progressed with therapy at this point. She has seen some decreased pain and feels comfortable with current exercise program. Had several questions about course of care and progression and plans to move towards weight loss and possible MRI follow up. Suitable for discharge to [facility] at this time. Plan of Care PT Services Indicated Yes
== END 2024-10-21 10:02 | disposition home or self-care (01) ==
LOC: ANHPT 16:30
PROVIDERS: PCP Family Medicine
DX: M54.16 Radiculopathy, lumbar region (principal); N81.89 Other female genital prolapse
CPT/HCPCS: 97110; 97140; 97161; 97530

== ENCOUNTER 2024-10-27 11:44 | Outpatient (CLI) | payer OTHER, SELFPAY ==
--- NOTE | ~2024-10-27 | DEXA_ITS ---
Bone Density Report Name: EFRA BIGGS Age: 64 Sex: Female Ethnicity: White Date of : 1960 Indication: postmenopausal; screening for osteoporosis; height loss; Referring Provider: DAINA RANGEL Study: Bone densitometry was performed. Exam Date: October 27, 2024 Accession number: [id number] Bone Density: Region BMD T-score Z-score Classification AP Spine(L1-L4) 1.057 0.1 1.9 Normal Femoral Neck (Left) 0.794 -0.5 1.0 Normal Total Hip (Left) 0.965 0.2 1.4 Normal Femoral Neck (Right) 0.802 -0.4 1.1 Normal Total Hip (Right) 0.906 -0.3 0.9 Normal Total Hip Mean 0.936 -0.1 1.2 Normal World Health Organization criteria for BMD impression classify patients as: Normal (T-score at or above -1.0), Osteopenia (T-score between -1.0 and -2.5), or Osteoporosis (T-score at or below -2.5). 10-year Fracture Risk: FRAX not reported because: All T-scores for Spine Total, Hip Total, Femoral Neck at or above -1.0 Clinical Information Provided by Patient: Has used the following medications: Vitamin D, Calcium Patient maximum height was 69 Menopause Age: 44 No regular weight bearing exercise Drinks caffeinated beverages Onset of menses at age 12 Number of children 2 Impression: The patient has normal bone mass. Discussion: BONE DENSITY IS ABOVE THE MINIMUM DESIRABLE LEVEL AT ALL SKELETAL SITES TESTED. This patient’s bone mineral density is above the minimum desirable level (T-score -1.0 or better) at all sites measured. The patient should follow a healthful lifestyle (good nutrition with adequate calcium and vitamin D, and appropriate weight-bearing exercise). Follow-Up: Consider repeating this study in 5 years or sooner if there is some new clinical indication. Reported by: FERNANDO on 10/27/2024 12:55:00 PM. Reviewed, dictated and finalized at location A.
--- NOTE | ~2024-10-27 | MM_ITS ---
EXAMINATION: MM screening wendy BI w yvette HISTORY: Screening TECHNIQUE: Craniocaudal and mediolateral oblique 3-D tomosynthesis images were obtained and synthetic 2-D images were generated. CAD analysis was submitted and interpreted. COMPARISON: Comparison to multiple prior studies sequentially, with oldest reviewed study dated 12/24. BREAST PARENCHYMAL COMPOSITION: Not Dense: The breasts are almost entirely fatty. FINDINGS: There is no evidence of suspicious mass, calcification, or architectural distortion to sugg est malignancy in either breast. There has been no suspicious interval change. IMPRESSION: 1. No mammographic evidence of malignancy. 2. Recommend routine screening mammography in one year. BI-RADS Category 1: Negative Reviewed, dictated and finalized at location A.
--- OUTSIDE RECORDS SUMMARY | 2024-10-27 11:47 | XMS_ITS | Clinical Summary ---
Author Organization [facility] Address [address] [place] [address] Care Team Providers Care Smoke Inspector Name Role Phone Unavailable Primary Care Provider Unavailabl e Social History Tobacco Use Types Packs/Day Years Used Date Smoking Tobacco: Never Assessed Comments Unknown Sex and Gender Information Value Date Recorded Sex Assigned at Not on file Legal Sex Female 5:11 PM CDT Gender Identity Not on file Sexual Orientation Not on file Plan of Treatment Health Maintenance Due Date Last Done Comments Colorectal Cancer Screening Colonoscopy (10 Years) 1959 Hepatitis C 1977 DTaP, Tdap and Td Vaccines ( 1 - Tdap) 1978 Mammogram Screening 1999 Pneumococcal Vaccine: 50+ Ye ars (1 of 1 - PCV) 2009 Zoster Vaccines (1 of 2) 2009 COVID-19 Vaccine ( - 2023-2 5 season) 2024 Dexa Scan (General) 2024 RSV Immunization or 60+ Years (1 [...]
--- OUTSIDE RECORDS SUMMARY | 2024-10-27 11:47 | XMS_ITS | Referral Summary ---
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 Not on file Not on file Last Filed Vital Signs Vital Sign Reading Time Taken Comments Blood Pressure 142/88 11/30/2018 9:05 AM CDT Pulse - - Temperature - - Respiratory Rate 18 07/21/2024 3:25 PM GLASS CALIBRATOR Oxygen Saturation - - Inhaled Oxygen Concentration - - Weight 113.4 kg (250 lb) 07/21/2024 3:25 PM GLASS CALIBRATOR Height 175.3 cm (5' 9 ) 07/21/2024 3:25 PM GLASS CALIBRATOR Body Mass Index 36.92 07/21/2024 3:25 PM GLASS CALIBRATOR Plan of Treatment Not on file Insurance CHOICE PLUS CHOICE PLUS Care Teams Senior Corporate Strategy Manager Relationship Specialty Start Date End Date Alex Laguerre MD [address] [place] [phone] PCP - General Family Medicine 07/08/24
--- OUTSIDE RECORDS SUMMARY | 2024-10-27 11:47 | XMS_ITS | Clinical Summary ---
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 Not on file Not on file Obstetrics History Last Filed Vital Signs Vital Sign Reading Time Taken Comments Blood Pressure 142/88 11/30/2018 9:05 AM CDT Pulse - - Temperature - - Respiratory Rate 18 07/21/2024 3:25 PM BURNT LIME DRAWER Oxygen Saturation - - Inhaled Oxygen Concentration - - Weight 113.4 kg (250 lb) 07/21/2024 3:25 PM BURNT LIME DRAWER Height 175.3 cm (5' 9 ) 07/21/2024 3:25 PM BURNT LIME DRAWER Body Mass Index 36.92 07/21/2024 3:25 PM BURNT LIME DRAWER Plan of Treatment Health Maintenance Due Date Last Done Comments Breast Cancer Screening-Mammogram 1959 Cervical Cancer Screening 1959 Colon Cancer Screening-Colonoscopy 1959 Fall Risk Assessment 1959 Hepatitis C Screening 1959 Osteoporosis Screening-Bone Density Scan 1959 Hepatitis B Screening 1977 Pneumococcal vaccine 65+ (1 of 1 - PCV) 2009 Zoster Vaccine (1 of 2) 2009 Depression Screening 12/01/2019 11/30/2018, 12/01/19 19 DTaP/Tdap/Td Vaccine (2 - Td or Tdap) 04/25/2024 04/25/2014 Well Visit 65+ 2024 Influenza Vaccine (Season Ended) 2025 04/08/2021, 04/02/2020, 03/22/2019, Additional history exists Insurance CHOICE PLUS CHOICE PLUS [place] [id number] Care Teams Catheter Builder Relationship Specialty Start Date End Date Alex Laguerre MD [address] [place] [phone] PCP - General Family Medicine 07/08/24
--- OUTSIDE RECORDS SUMMARY | 2024-10-27 11:47 | XMS_ITS | Clinical Summary ---
Author Organization [facility] Address [address] [address] Phone Care Team Providers Care Junior Programmer Analyst Name Role Phone Beronica Guajardo Primary Care Provider [phone] Medications polyethylene glycol (MIRALAX) Powder Use entire [...] Recently Relevant to Health Maintenance Care Teams Junior Programmer Analyst Relationship Specialty Start Date End Date Beronica Guajardo PA [address] [place] [phone] PCP - General Physician Ichthyology Teacher 08/25/17
== END 2024-10-27 11:45 | disposition home or self-care (01) ==
LOC: ANHIMG 11:46
PROVIDERS: PCP Family Medicine
DX: Z12.31 Encounter for screening mammogram for malignant neoplasm of breast (principal); Z78.0 Asymptomatic menopausal state
CPT/HCPCS: 77063; 77067; 77080